=== PATIENT | male | born 1985 | race Caucasian/White ===

== ENCOUNTER 2024-05-25 11:34 | Emergency (ER) | payer BC ==
[~2024-05-25] VITALS: Ht 193 cm; Wt 93.0 kg
[2024-05-25 11:51] VITALS: BP 111/74; TEMP 98.7
[2024-05-25 12:58] VITALS: O2SAT 100
== END 2024-05-25 12:52 | disposition home or self-care (01) ==
LOC: ER 11:49
DX: R09.A2 Foreign body sensation, throat (principal)